=== PATIENT | female | born 1965 | race Two or more races ===

== ENCOUNTER → 2020-05-28 | Outpatient (CLI) | payer BC ==
[2014-09-15 17:26] VITALS: BP 131/86
[~2020-05-28] MED LIST: HYDR-3165 PO
--- NOTE | 2020-05-28 16:05 | RAD ---
EXAMINATION: MG BILAT SCREEN+ADELAIDA CLINICAL HISTORY: Routine screening TECHNIQUE: Digital craniocaudal and mediolateral oblique views of the bilateral breasts obtained with 3-D tomosynthesis. COMPARISON: 10/09/2014, 06/10/2010 BREAST COMPOSITION: The breasts are almost entirely fatty. FINDINGS: No evidence of suspicious mass, calcifications, or areas of architectural distortion. IMPRESSION: No mammographic evidence of malignancy. BI-RADS ASSESSMENT: Category 1: Negative RECOMMENDATION: Return for routine bilateral screening mammogram in one year. PQRS compliance statement - Patient information was entered into a reminder system with a target due date for the next mammogram. "Our facility is accredited by the [employer] Mammography [employer]." Electronically signed by: Azam Allred DO (05/28/2020 4:02 PM) [email or web address]
== END ==
LOC: MAMMO 09:48
PROVIDERS: ATTEND Physician Assistant Medical
DX: Z12.31 Encounter for screening mammogram for malignant neoplasm of breast (principal)
CPT/HCPCS: 77063; 77067

== ENCOUNTER → 2020-06-05 | Outpatient (CLI) | payer BC ==
[2014-09-15 17:26] VITALS: BP 131/86
--- NOTE | 2020-06-05 16:07 | RAD ---
XR KNEE 1-2 VIEWS, XR KNEE_AP BILAT STANDING 06/05/2020 9:10 AM INDICATION: Knee pain COMPARISON: None available. TECHNIQUE: 3 views the right and 3 views the left knee are provided. FINDINGS/ IMPRESSION: 1. Right: There is no acute fracture or dislocation. Moderate medial femorotibial and patellofemoral joint space narrowing with marginal osteophytosis compatible with moderate osteoarthrosis. Mild later al femorotibial osteoarthrosis. No significant knee joint effusion. No significant soft tissue abnorm ality. 2. Left: Mild medial femorotibial and patellofemoral joint space narrowing compatible with mild osteo arthrosis. No acute fracture or dislocation. No significant joint effusion. Soft tissues are normal. Electronically signed by: Toma Leblanc MD (06/05/2020 4:04 PM) LEANN
== END ==
LOC: RAD 09:03
PROVIDERS: ATTEND Physician Assistant
DX: M17.0 Bilateral primary osteoarthritis of knee (principal)
CPT/HCPCS: 73560; 73565

== ENCOUNTER → 2020-08-31 | Outpatient (CLI) | payer BC ==
[2014-09-15 17:26] VITALS: BP 131/86
--- NOTE | 2020-09-01 08:58 | RAD ---
EXAM: AP views both knees, lateral and tangential patellar views left knee DATE: 08/31/2020 3:39 PM INDICATION: LEFT KNEE PAIN, INJURY X 2 DAYS AGO COMPARISON: No Prior FINDINGS: Left knee: Moderate medial joint space narrowing with tricompartmental osteophytes. Small left knee j oint effusion. Neutral patellar tracking. Single AP view right knee demonstrates moderate to severe medial compartment joint space narrowing wi th tricompartmental osteophytes. IMPRESSION: No evidence of acute fracture or dislocation. Moderate to severe bilateral knee joint osteoarthritis, greater in the medial compartment Electronically signed by: Gilbert Houser MD (09/01/2020 8:55 AM) [email or web address]
== END ==
LOC: DXRAD 15:28
PROVIDERS: ATTEND Physician Assistant
DX: M17.0 Bilateral primary osteoarthritis of knee (principal); M25.762 Osteophyte, left knee; M25.761 Osteophyte, right knee
CPT/HCPCS: 73560; 73565

== ENCOUNTER → 2021-06-30 | Outpatient (CLI) | payer BC ==
[2014-09-15 17:26] VITALS: BP 131/86
--- NOTE | 2021-06-30 11:17 | RAD ---
INDICATION: 55 years of age asymptomatic female patient presents for screening mammography. No person al or family history of breast cancer. TECHNIQUE: Full field craniocaudal and mediolateral oblique images of both breasts were obtained usi ng digital technique with tomosynthesis and also analyzed with computer-aided detection software. COMPARISON: Prior mammographic imaging dating back to 10/09/2014. BREAST COMPOSITION: Category A: The breasts are predominantly fatty. FINDINGS: No suspicious masses, microcalcifications or architectural distortion is present to suggest malignanc y in either breast. The visualized axillae are unremarkable. IMPRESSION: No mammographic evidence of malignancy. RECOMMENDATION: Annual screening mammography is recommended, unless clinically indicated sooner based on symptoms or change in physical exam. BIRADS 1: NEGATIVE This study was interpreted with the benefit of Computerized Aided Detection (CAD). Patient information is entered into the reminder system with a target due date for the next screening mammogram. Mammography is the most sensitive method for finding small breast cancers, but it does not detect the m all and is not a substitute for careful clinical examination. A negative mammogram does not negate a clinically suspicious finding and should not result in delay in biopsying a clinically suspicious a bnormality. "Our facility is accredited by the [employer] Mammography [employer]." Electronically signed by: Ten Rose DO (06/30/2021 11:14 AM) [email or web address]
== END ==
LOC: MAMMO 09:50
PROVIDERS: ATTEND Physician Assistant Medical
DX: Z12.31 Encounter for screening mammogram for malignant neoplasm of breast (principal)
CPT/HCPCS: 77063; 77067